=== PATIENT | female | born 1950 | race Caucasian/White ===

== ENCOUNTER 2016-11-04 13:40 | Emergency (ER) | payer MEDICARE, BC ==
--- NOTE | ~2016-11-04 | ER ---
PATIENT'S NAME: FORD ROQUE [facility] AGE: 66 Y [address] ROOM: [place] [address] LOCATION: ED ADMIT DATE: 11/04/2016 ER/Outpatient Report DISCHARGE DATE: 11/04/2016 FAMILY PHYSICIAN: Miguel Parker MD ATTENDING PHYSICIAN: Linwood Dao Time of Arrival: 1401 hours. Time of Exam: 1412 hours. CHIEF COMPLAINT: Left knee swelling and pain. HISTORY OF PRESENT ILLNESS: The patient states that she has had problems with her left knee off and on since September. However, since , she has had increased pain and felt a knot on the deep inside posterior part of the knee. She was seen in [place], they did a D-dimer and was elevated. Recommended that she come for further evaluation and Doppler study of the leg. She denies feeling short of breath. She has not had any chest pain. She has not injured her left knee in any way. ALLERGIES: SHE HAS NO KNOWN ALLERGIES. CURRENT MEDICATIONS: On her chart and reviewed by me. PAST MEDICAL HISTORY: Elevated cholesterol, hypothyroidism, and hypertension. PAST SURGERIES: Cholecystectomy and D and C. SOCIAL HISTORY: She denies use of tobacco, drugs, or alcohol. She presents to the ER accompanied by her . Her primary provider is Dr. Miguel Parker in [place]. REVIEW OF SYSTEMS: All negative other than those mentioned in the HPI. PHYSICAL EXAMINATION: VITAL SIGNS: She states she is 5 feet 5 inches. She weighed 92.4 kg. Blood pressure 207/88, pulse 71, respirations 16, temperature of 98.7, and O2 saturation was 97% on room air. GENERAL: She is awake, alert, and oriented x4. SKIN: [place], warm, and dry. PATIENT'S NAME: FORD ROQUE [facility] AGE: 66 Y [address] ROOM: [place] [address] LOCATION: ED ADMIT DATE: 11/04/2016 ER/Outpatient Report DISCHARGE DATE: 11/04/2016 FAMILY PHYSICIAN: Miguel Parker MD ATTENDING PHYSICIAN: Linwood Dao RESPIRATIONS: Even and nonlabored. Lung sounds are clear throughout. HEART: Regular rate and rhythm. ABDOMEN: Soft and nondistended. Bowel sounds are present. MUSCULOSKELETAL: She walks in with a steady even gait. Does have some limping with the left leg due to pain. She reports she has been dealing with a heel spur on the left leg also. LABORATORY DATA AND X-RAYS: Lab work was completed. CBC is within normal limits. Chem panel is within normal limits. Cardiac enzymes are negative. D-dimer was 0.91. Did do a venous Doppler of her left leg. Eyeglass Frame Truer reports no signs of a DVT. The patient was reviewed with Dr. Dao. The patient's blood pressure did come down to 171/72. IMPRESSION: Left knee pain and swelling. PLAN: Home, rest, elevate. Ice or heat to the knee may help. She said she has seen Dr. Mckay at [facility] before, I encouraged her to make an appointment to be seen by him on Saturday. She is welcome to return to the ER sooner if symptoms change. She and her verbalized understanding. KENAN SOL APRN FOR MD ERMA VEGA/carlos /[id number] d: 11/04/161801 t: 11/13/161933, OUTPATIENT REPORT
--- NOTE | ~2016-11-04 | ENPV ---
Vascular Lower Extremities DVT Study Procedure Demographics Patient Name FORD ROQUE Date of Study 11/04/2016 Patient Number [id number] Gender Female Date of 1950 Age 66 Visit Number [id number] Height Accession Number [id number] Weight Room Number BSA BMI Referring Keith Mary MD Physician Dominguez Physician Physician Ordering Physician Dominguez Grader [employer] Scanning Supervisor Cale Carter T, [facility] Conclusions Summary No evidence of deep vein thrombosis or superficial thrombophlebitis in the left lower extremity . Procedure Type of Study: Veins:Lower Extremities DVT Study, Lower Extremity Left. Indications for Study:Pain and Swelling. Appropriate Use Criteria:6 Patient Status:STAT. Study Location:ER. Technical Quality:Good visualization. - Preliminary reported to:Avelina Mix. Velocities are measured in cm/s ; Diameters are measured in cm Right Lower Extremities DVT Study Measurements Right 2D and Doppler Measurements + + + + +------+------+ + !Location !Visualized!Compressibility!Thrombosis!Signal!Reflux!Reflux ! ! ! ! ! ! ! !(sec) ! + + + + +------+------+ + !GSV Thigh !Yes !Yes !None !Phasic! ! ! + + + + +------+------+ + !Common !Yes !Yes !None !Phasic! ! ! !Femoral ! ! ! ! ! ! ! + + + + +------+------+ + Left Lower Extremities DVT Study Measurements Left 2D and Doppler Measurements + + + + +------+------+ + !Location !Visualized!Compressibility!Thrombosis!Signal!Reflux!Reflux ! ! ! ! ! ! ! !(sec) ! + + + + +------+------+ + !GSV Thigh !Yes !Yes !None !Phasic! ! ! + + + + +------+------+ + !Common !Yes !Yes !None !Phasic! ! ! !Femoral ! ! ! ! ! ! ! + + + + +------+------+ + !Prox !Yes !Yes !None !Phasic! ! ! !Femoral ! ! ! ! ! ! ! + + + + +------+------+ + !Mid Femoral!Yes !Yes !None !Phasic! ! ! + + + + +------+------+ + !Dist !Yes !Yes !None !Phasic! ! ! !Femoral ! ! ! ! ! ! ! + + + + +------+------+ + !Popliteal !Yes !Yes !None !Phasic! ! ! + + + + +------+------+ + !PTV !Yes !Yes !None !Phasic! ! ! + + + + +------+------+ + !Peroneal !Yes !Yes !None !Phasic! ! ! + + + + +------+------+ + Signature dtt: ZANE MCCARTHY dtkarma: 11/04/16 1428 Physician Self Edit
[2016-11-04 14:38] LABS: BASOPHIL % 0.2 %; EOSINOPHIL % 0.4 %; HEMATOCRIT 38.2 % (33.0-46.0); HEMOGLOBIN 12.7 g/dL (10.0-15.0); IMMATURE GRANULOCYTE % 0.3 %; LYMPHOCYTE # 2.1 K/uL (0.8-4.0); LYMPHOCYTE % 22.2 %; MCH 30.1 pg (27.0-34.0); MCHC 33.2 gm/dL (32.0-36.5); MCV 90.5 fl (83.0-98.0); MONOCYTE # 0.5 K/uL (0.0-1.0); MONOCYTE % 5.4 %; MPV 10.7 fl (9.4-12.4); NEUTROPHIL # (ANC) 6.7 K/uL (1.8-7.8); NEUTROPHIL % 71.5 %; NRBC % 0 /100WBC (0-0.00); PLATELET COUNT 201 K/uL (150-450); RBC 4.22 M/uL (3.50-5.50); RDW-CV 12.8 % (11.9-14.6); WBC 9.3 K/uL (4.0-11.0)
[2016-11-04 14:57] LABS: ALBUMIN 3.5 gm/dL (3.5-5.0); ALK PHOS 84 IU/L (33-138); ALT 22 IU/L (12-78); ANION GAP 12.6 (10.0-19.0); AST 10 IU/L (10-40); BLOOD UREA NITROGEN 19 mg/dL (6-24); CALCIUM 8.9 mg/dL (8.5-10.5); CHLORIDE 107 mMol/L (96-110); CO2 28 mMol/L (22-32); CPK 95 IU/L (21-215); ESTIMATED GFR (MDRD EQUATION) 55; POTASSIUM 3.6 mMol/L (3.7-5.1); SODIUM 144 mMol/L (135-145); TOTAL BILIRUBIN 0.3 mg/dL (0.0-1.5); TOTAL PROTEIN 7.3 g/dL (6.0-8.4)
== END 2016-11-04 15:22 | disposition disaster alternative care site (69) ==
LOC: GMED 13:40
PROVIDERS: Nurse Practitioner Family
DX: M25.462 Effusion, left knee (principal); M25.562 Pain in left knee; I10 Essential (primary) hypertension; E03.9 Hypothyroidism, unspecified; M79.662 Pain in left lower leg; E78.00 Pure hypercholesterolemia, unspecified; Z90.49 Acquired absence of other specified parts of digestive tract; Z98.890 Other specified postprocedural states; Z79.899 Other long term (current) drug therapy